=== PATIENT | female | born 1935 | race Caucasian/White ===

== ENCOUNTER 2021-12-18 11:14 | Outpatient (REF) | payer MEDICARE, SELFPAY ==
[2021-12-18 14:29] LABS: TSH reflex Free T4 1.32 uIU/mL (0.32-4.0)
[2021-12-18 14:30] LABS: Alanine Aminotransferase 19 U/L (0-31); Albumin Level 4.1 g/dL (3.5-5.0); Alkaline Phosphatase 58 U/L (39-117); Anion Gap 13 (12-20); Aspartate Amino Transferase 25 U/L (5-31); Bilirubin Total 0.6 mg/dL (0.0-1.0); Carbon Dioxide 28 mmol/L (22-29); Chloride 106 mmol/L (96-108); Cholesterol 161 mg/dL; Estimated Glomerular Filt Rate 46; Glucose Fasting 75 mg/dL (60-99); HDL Cholesterol 53 mg/dL; LDL Cholesterol Calculated 86 mg/dl; Potassium 4.5 mmol/L (3.3-5.1); Sodium 142 mmol/L (135-145); Total Protein 7.2 g/dL (6.5-8.0); Triglycerides 114 mg/dL
[2021-12-18 15:47] LABS: Blood Urea Nitrogen 23 mg/dL (9-16); Calcium 9.8 mg/dL (8.4-10.2)
== END 2021-12-18 11:15 | disposition home or self-care (01) ==
LOC: HO.WFDLDS 11:14
PROVIDERS: Visit Provider Family Medicine
DX: Z00.00 Encounter for general adult medical examination without abnormal findings (principal)
CPT/HCPCS: 36415; 80053; 80061; 84443

== ENCOUNTER 2022-03-18 14:49 | Outpatient (REF) | payer MEDICARE, SELFPAY ==
--- NOTE | 2022-03-18 16:56 | MHC.AU.ANR ---
Adult Audiological Evaluation Date of Visit: 03/18/22 Reason for Appointment: Audiological evaluation due to concern for decreased hearing. Ms. Man reports difficulties understanding speech and feels like she is not hearing clearly. She notes that her left ear sometimes has an echoing sound in it. She reports that when she was a child she had an abscess in her left ear that was removed. She notes that she recently had her ears flushed of wax. Does patient feel they have a hearing loss?: Yes If Yes, Which Ear?: Both Ears When Was Hearing Difficulty First Noticed?: 1+ year Has hearing been tested previously?: Previous Hearing Test Results: Notes that she had a hearing test a long time ago, but does not remember the results. Hearing Handicap Inventory: HHIE SCORE: 18 Based on HHIE score, patient has: Mild to moderate perceived hearing handicap Ear History: Ear Infections in Childhood: Left Ear History of Ear Wax Buildup: Both Ears Medical History: Medical History: Heart Problems, High Blood Pressure Medical History (Other): Per EMR: atrial fibrillation Allergies: NKA Medication List: Per EMR: Alprazolam, apixaban, Debrox, Digoxin, gabapentin, lisinopril, tramadol, verapamil Otoscopy: Right Ear: Unremarkable Left Ear: Unremarkable Tympanometry: Tympanometry performed due to: To assess integrity of the middle ear system Right Ear: Reduced Middle Ear Compliance (Type As) Left Ear: Reduced Middle Ear Compliance (Type As) Hearing Evaluation: Transducer(s) Used: Insert Earphones, Bone Conduction Method: Conventional Audiometry Stimuli Used: Pure Tones Right Ear: Description of Hearing: Mild sloping to moderately-severe sensorineural hearing loss from 250-8000 Hz. Left Ear: Description of Hearing: Moderate to moderately-severe sensorineural hearing loss form 250-8000 Hz. Speech Recognition Threshold (SRT): Method Used: Monitored Live Voice Stimuli Used: Spondee Words Right Ear: 45 dBHL Left Ear: 50 dBHL Word Discrimination: Method: Recorded Lists Word Lists Used: NU-6 Right Ear: 60% at 80 dBHL Left Ear: 40% at 80 dBHL Binaural: 64% at 80 dBHL Most Comfortable Level (MCL): Right Ear: 80 dBHL Left Ear: 75 dBHL QuickSIN: Comparison: Compared to the most recent evaluation: Compared to the most recent evaluation: Interpretation of Results: Recommendations: Audiological re-evaluation in one year. Trial with amplification is recommended. Discussed benefits of hearing aid use. She will think about her options and if she is ready to pursue hearing aids. Recommended she contact her health insurance plan to determine if she has any hearing aid benefits. Welcomed to return for a hearing aid consultation to further discuss options if she decides she would like to pursue hearing aids through our clinic. Diagnosis: Primary Diagnosis: H90.3 Bilateral Sensorineural Hearing Loss Services Performed: Services Performed: Comprehensive Audiological Evaluation (CPT 78419) Tympanometry (CPT 09099) Signature: Provider: Jos Myles, CCC-A
== END 2022-03-18 14:50 | disposition home or self-care (01) ==
LOC: HO.SH 14:49
PROVIDERS: Visit Provider Family Medicine
DX: Z01.118 Encounter for examination of ears and hearing with other abnormal findings (principal); H90.3 Sensorineural hearing loss, bilateral
CPT/HCPCS: 92557; 92567

== ENCOUNTER 2022-06-10 11:55 | Outpatient (REF) | payer SELFPAY ==
--- NOTE | 2022-06-11 11:12 | MHC.AU.HFU ---
Hearing Instrument Follow-Up- Binaural Date of Visit: 06/10/22 Summary: Scheduled for HAE. Patient had gone to [facility] and tried a pair of aids in office, but does not want to return there to purchase aids as too expensive and did not like working with a diagnostics sales developer. Patient interested in basic level and rechargeable model. Patient insisted on trying Demos in office. Discussed and modeled ELINOR vs. custom due to vision an manipulation concerns. Patient wants the ELINOR style as less visible. Trialed both ReSound and Oticon aids in office, but needed the gain very reduced to tolerate on both aids. Seemed to hear better in office with the Resound aids. Will need custom tips as it is difficult to place domes around the curves of canals for best sound quality and keeping aids in ears. Otoscopy shows mostly occluding cerumen bilaterally. Patient on blood thinner so needs to see a physician for removal. Recommendations: Recommendations (Other): Patient will return to Urgent Care where ears have been cleaned in past. Scheduled appointment for 06/17/22 12:15 for impressions and confirm order. Patient will likely want to set up payment plan for 2nd half of balance Diagnosis Code(s): Primary Diagnosis: H90.3 Bilateral Sensorineural Hearing Loss Signature: Provider: Yousuf Corrales, CCC-A
== END 2022-06-10 11:56 | disposition home or self-care (01) ==
LOC: HO.HAP 11:55
PROVIDERS: Visit Provider Family Medicine
DX: Z13.89 Encounter for screening for other disorder (principal)

== ENCOUNTER 2022-06-17 11:45 | Outpatient (REF) | payer SELFPAY ==
--- NOTE | 2022-06-17 13:39 | MHC.AU.MED ---
Medical Clearance for Hearing Instrumentation Date: 06/17/22 Patient Name: Goldie Man Date of : 1935 Primary Care Provider: Referring Provider: Mitchell Starr MD We have seen your patient on 06/17/22 and have determined that they are a candidate for amplification (See accompanying report). Specifically, they would benefit from: Hearing aid use in both ears There is a statute that addresses Medical Evaluation Requirements prior to fitting a patient with a hearing aid. According to [place] statute 265 CMR:6.03(1), (a) General. Except as provided in 265 CMR 6.03(1)(b), a online marketer shall not sell a hearing aid unless the prospective user has presented to the online marketer a written statement signed by a licensed physician that states that the patient's hearing loss has been medically evaluated and the patient may be considered a candidate for a hearing aid. The medical evaluation must have taken place within the preceding six months. Please note: Due to the [place] Statute referenced above, we cannot accept a signature other than that of a licensed physician. DIGESTER CAPPER and PA signatures cannot be accepted. I am in agreement with the above recommendation. There is no medical contraindication for hearing instrumentation. Physician Signature Date Physician Name (Printed)
--- NOTE | 2022-06-17 13:50 | MHC.AU.HAS ---
Hearing Aid Evaluation Date of Visit: 06/17/22 Historical Information: Description of Hearing: Bilateral Mild/moderate to moderately-severe sensorineural hearing loss Current personal amplification information, if applicable: None Summary: Due to patient's significant hearing loss and speech understanding difficulty, binaural hearing aids are recommended. After discussion and demonstrating hearing aids in office, patient wants rechargeable ELINOR style aids and communicated better while in office with the ReSound ELINOR aids. Took impressions for custom earmolds without complication Hearing Aid Prescription: Based on the individual?s shared listening needs, communication environments, dexterity, desire for connectivity, and personal preferences, the following prescription for amplification has been made: Right ear: Belt Press Operator: ReSound Model: [id number] Battery Size: Rechargeable Color: Graphite Behavioral Intervention Specialist: 2 MP Type of Mold: ReSound Canal Lock Left ear:Left ear prescription to be same as Right Hearing Aid above: Belt Press Operator: ReSound Model: [id number] Battery Size: Rechargeable Color: Graphite Behavioral Intervention Specialist: 2 MP Type of Mold: ReSound Canal Lock Plan of Care: Patient wishes to purchase hearing aids as prescribed Action Taken/Action Needed: Earmold Impressions Taken Medical Clearance to be requested from PCP/ENT Comments: HAF scheduled for 07/17/2022 Primary Diagnosis: H90.3 Bilateral Sensorineural Hearing Loss Signature:Provider: Yousuf Corrales, CCC-A
== END 2022-06-17 11:46 | disposition home or self-care (01) ==
LOC: HO.HAP 11:45
PROVIDERS: Visit Provider Family Medicine
DX: Z46.1 Encounter for fitting and adjustment of hearing aid (principal); H90.3 Sensorineural hearing loss, bilateral
CPT/HCPCS: 92590; 92591

== ENCOUNTER 2022-07-17 10:53 | Outpatient (REF) | payer SELFPAY | END 2022-07-17 10:54 | disposition home or self-care (01) | LOC: HO.HAP 10:53 | PROVIDERS: Visit Provider Family Medicine | DX: Z13.89 Encounter for screening for other disorder (principal) ==

== ENCOUNTER 2022-09-19 12:59 | Outpatient (REF) | payer SELFPAY | END 2022-09-19 13:00 | disposition home or self-care (01) | LOC: HO.HAP 12:59 | PROVIDERS: Visit Provider Family Medicine | DX: Z46.1 Encounter for fitting and adjustment of hearing aid (principal); H90.3 Sensorineural hearing loss, bilateral | CPT/HCPCS: 92700; V5299 ==

== ENCOUNTER 2022-10-17 12:18 | Outpatient (REF) | payer SELFPAY | END 2022-10-17 12:19 | disposition home or self-care (01) | LOC: HO.HAP 12:18 | PROVIDERS: Visit Provider Family Medicine | DX: Z13.89 Encounter for screening for other disorder (principal) ==

== ENCOUNTER 2023-03-12 10:53 | Outpatient (REF) | payer MEDICARE, SELFPAY ==
[2023-03-12 13:52] LABS: Appearance Urine Clear; Color Urine Yellow; Glucose Urine UA Negative (Negative); Leukocyte Esterase Urine Small (1+) (Negative); Nitrite Urine Negative (Negative); Specific Gravity - Urine 1.015 (1.005-1.025); UMIC TRIGGER UA YES; Urine Blood Negative (Negative); Urine Ketones Negative (Negative); Urine Protein Negative (Neg-Trace)
[2023-03-12 14:19] LABS: Bacteria Urine Trace (None Seen); Hyaline Casts Urine 0-2 /LPF (0-2); RBC Urine 0-2 /HPF (0-2); Squamous Epithelial Cell Urine 0-2 /HPF (0-2); WBC Urine 0-5 /HPF (0-5)
[2023-03-12 15:30] LABS: Microalbumin Urine < 5.0 mg/L
== END 2023-03-12 10:54 | disposition home or self-care (01) ==
LOC: HO.WFDLNP 10:53
PROVIDERS: Visit Provider Family Medicine
DX: I10 Essential (primary) hypertension (principal)
CPT/HCPCS: 81001; 82043

== ENCOUNTER 2023-03-16 10:16 | Outpatient (REF) | payer MEDICARE, SELFPAY ==
[2023-03-16 11:47] LABS: Alanine Aminotransferase 18 U/L (0-31); Albumin Level 3.8 g/dL (3.5-5.0); Alkaline Phosphatase 54 U/L (39-117); Anion Gap 11 (12-20); Aspartate Amino Transferase 24 U/L (5-31); Bilirubin Total 0.6 mg/dL (0.0-1.0); Blood Urea Nitrogen 20 mg/dL (9-16); Calcium 9.6 mg/dL (8.4-10.2); Carbon Dioxide 30 mmol/L (22-29); Chloride 103 mmol/L (96-108); Cholesterol 162 mg/dL; Estimated Glomerular Filt Rate 42; Glucose Fasting 81 mg/dL (60-99); HDL Cholesterol 44 mg/dL; LDL Cholesterol Calculated 98 mg/dl; Potassium 4.8 mmol/L (3.3-5.1); Sodium 139 mmol/L (135-145); Total Protein 6.9 g/dL (6.5-8.0); Triglycerides 103 mg/dL
== END 2023-03-16 10:17 | disposition home or self-care (01) ==
LOC: HO.WFDLDS 10:16
PROVIDERS: Visit Provider Family Medicine
DX: Z00.00 Encounter for general adult medical examination without abnormal findings (principal)
CPT/HCPCS: 36415; 80053; 80061; 84443

== ENCOUNTER 2023-03-17 16:00 | Outpatient (REF) | payer MEDICARE, SELFPAY ==
[2023-03-18 14:18] LABS: Appearance Urine Cloudy; Color Urine Yellow; Glucose Urine UA Negative (Negative); Leukocyte Esterase Urine Negative (Negative); Nitrite Urine Negative (Negative); PH 6.5 (5.0-9.0); Urine Blood Negative (Negative); Urine Ketones Negative (Negative); Urine Protein Negative (Neg-Trace)
== END 2023-03-17 16:01 | disposition home or self-care (01) ==
LOC: HO.WFDLNP 16:00
PROVIDERS: Visit Provider Family Medicine
DX: I10 Essential (primary) hypertension (principal)
CPT/HCPCS: 81003

== ENCOUNTER 2023-05-26 14:14 | Outpatient (AMB) | payer MEDICARE, SELFPAY ==
--- NOTE | 2023-05-26 14:18 | A.OFFPC_ITS ---
Vital Signs 05/26/23 14:23 Height 5 ft 4 in Weight 126 lb BMI 21.6 BP 124/70 Blood Pressure Location Lt brachial Pulse 65 Pulse Oximetry (%) 97 Oxygen Delivery Method Room Air Intake Visit Reasons: f/u hypertension and chronic conditions Intake Note: Patient is here for hypertension and chronic conditions. Allergies No Known Allergies Allergy (Verified 05/26/23 14:24) Tobacco use date assessed: 07/25/22 Fall risk assessment: No Falls in past year Dental Screening Dental Screen Date: 05/26/23 Did you have a dental visit in the last 12 months?: No Did you have a dental problem in the last 6 months where you did not have access to dental care?: No Was dental information given to patient?: No HPI f/u hypertension and chronic conditions HPI Details 88 y/o female presents to f/u hypertension and chronic conditions. Blood pressure today is 124/70. Has lower extremity weakness for which she has undergone physical therapy by [facility]. This has been discontinued. Still in wheelchair and gets around at home with some walking. Has a PARKING METER MECHANIC who helps her at home [facility] Social History Housing: House Patient Tobacco Use Status: Former Tobacco user (23 yars ago ) Tobacco use type: Cigarette e-Cigarette/Vaping Use: Never Used Second Hand Smoke Exposure: No service: No Current occupational status: retired Current occupational exposures/hazards: No Cognitive needs: Yes Hearing needs: Yes Vision needs: Yes Questionnaire Thrive Questionnaire Date Thrive assessed: 01/13/22 MAGAN-7 AMB Questionnaire MAGAN-7 Date MAGAN - 7 assessed: 09/26/21 Source: Developed by Drs. Maximino Stafford, Lynn Urrutia, Ramy Baca and colleagues, with an educational melba from [employer]. Review of Systems Const Denies chills, Denies fatigue, Denies fever(s), Denies headache(s) and Denies weakness ENT Denies dizziness and Denies headache(s) Card Denies dyspnea Resp Denies cough, Denies dyspnea, Denies wheezing and Denies other (shortness of breath) Musc Denies numbness and Denies tingling Neuro Denies dizziness, Denies headache(s), Denies numbness, Denies tingling and Denies weakness Psych Denies anxiety and Denies depression Endo Denies fatigue Aller/Immun Denies wheezing Physical exam (Primary Care) Vital Signs: Last Vital Signs Pulse 65 05/26/23 14:23 BP 124/70 05/26/23 14:23 Pulse Ox 97 05/26/23 14:23 Oxygen Delivery Method Room Air 05/26/23 14:23 BMI result Body Mass Index 21.6 Tobacco/Smoking Status: Tobacco use Status Tobacco use date assessed 07/25/22 05/26/23 14:19 Patient Tobacco Use Status Former Tobacco user (23 yars 05/26/23 14:19 ago ) Tobacco use type Cigarette 05/26/23 14:19 e-Cigarette/Vaping Use Never Used 05/26/23 14:19 Thrive Assessment: Date of Thrive Assessment Date Thrive assessed 01/13/22 05/26/23 14:19 Const General: well developed; No acute distress Nutritional Appearance: well nourished Orientation/consciousness: patient oriented x3 HENMT Head: Yes normocephalic and Yes atraumatic Eyes General: appearance normal, both eyes and all related structures Pupils: Equal, round and reactive pupils present EOM: EOMs intact bilaterally Resp Effort & Inspection: normal respiratory effort Neuro General: patient oriented x3 and gait normal Cranial nerves: Yes CN's II-XII intact bilaterally and Yes Equal, round and reactive pupils present Gait exam (Neuro): gait abnormal and Assisted gait required Gait assisted method: wheelchair bound Motor exam (neuro): strength not 5/5 throughout (LE weakness, L worse than right) Psych Affect: normal affect Assessment and Plan Assessment & Plan (1) Essential hypertension: Code(s): I10 - Essential (primary) hypertension Plan: Blood pressure is controlled. Goal is less than 140/90 Continue current medication regimen (2) Lower extremity weakness: Code(s): R29.898 - Other symptoms and signs involving the musculoskeletal system Plan: Patient has a history left-sided sciatica as well as bilateral knee pain and secondary lower extremity weakness She had undergone physical therapy with [facility] I encouraged her to continue her exercises Still in a wheelchair but does get up to get around at home and I encouraged this with assistance (3) Left sided sciatica: Code(s): M54.32 - Sciatica, left side Plan: As above Orders: Orders Comprehensive Met. Panel Today I10 - Essential (primary) hypertension Medications: Refilled lisinopril-hydrochlorothiazide 20-12.5 mg 1 tab PO DAILY 90 tabs 4RF 90 days Coding Level of Care Code Est Pt Level 4 (00726) Diagnoses Essential hypertension I10 Lower extremity weakness R29.898 Left sided sciatica M54.32
[2023-05-26 14:23] VITALS: BP 124/70; PULSE 65; O2SAT 97; BMI 21.6
== END 2023-05-26 14:55 | disposition home or self-care (01) ==
PROVIDERS: Visit Provider Family Medicine
DX: I10 Essential (primary) hypertension (principal); R29.898 Other symptoms and signs involving the musculoskeletal system; M54.32 Sciatica, left side
CPT/HCPCS: 99214

== ENCOUNTER 2023-07-21 14:53 | Outpatient (REF) | payer MEDICARE, SELFPAY ==
--- NOTE | ~2023-07-21 | CT_ITS ---
EXAMINATION: CT head/brain wo IV con CLINICAL INFORMATION: Reason for Exam R41.82 - Altered mental status, unspecified COMPARISON: None. TECHNIQUE: Contiguous axial imaging was performed from the skull base to vertex without intravenous contrast. Sagittal and coronal reformatted images were obtained. This CT examination was performed using dose optimization techniques as appropriate, variously including the following: * Automated exposure control * Adjustment of mA and/or kV according to patient size (this includes techniques or standardized protocols for targeted exams where dose is matched to indication/reason for exam; i.e. extremities or head) Use of iterative reconstruction technique DLP: 714 mGy-cm FINDINGS: There is a partially mineralized 2.1 cm extra-axial mass within the medial aspect of the right middle cranial fossa broadly abutting the right anterior clinoid process and lesser wing of the sphenoid bone, lateral dural reflection of the right cavernous sinus and superior aspect of the right Meckel's cave with mass effect along the mesial right temporal lobe but no vasogenic edema. The mass contacts the right carotid terminus and right M1 MCA. 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 Mild to moderate generalized parenchymal volume loss. Patchy periventricular and deep white matter hypoattenuation is nonspecific but likely reflects sequelae of mild chronic microangiopathy. No territorial loss of lambert-white differentiation. Cranial calcific atherosclerosis. No acute intracranial hemorrhage or extra-axial fluid collection. The orbits are grossly normal. Mild mucosal disease within the bilateral maxillary sinus alveolar recesses. No mastoid effusion. Asymmetric advanced right TMJ osteoarthrosis. Osseous structures are intact. Incompletely advanced hypertrophic degenerative changes across the anterior atlantodental interval with retrodental ligamentous thickening/panus encroaching upon the ventral cervicomedullary junction. CT/CT head/brain wo IV con IMPRESSION: 1. Partially mineralized 2.1 cm extra-axial right paraclinoid mass within the right middle cranial fossa causing mass effect along adjacent structures including the mesial right temporal lobe without vasogenic edema, most suggestive of a paraclinoid meningioma. Further characterization with contrast-enhanced MRI is advised. Findings to be called to the ordering clinician by a [facility] Physician Donor Floor Technician. 2. 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 3. Asymmetric advanced right TMJ osteoarthrosis. 4. Incompletely advanced hypertrophic degenerative changes across the anterior atlantodental interval with retrodental ligamentous thickening/panus encroaching upon the ventral cervicomedullary junction.
== END 2023-07-21 14:54 | disposition home or self-care (01) ==
LOC: HO.CT 14:53
PROVIDERS: PCP Family Medicine; Visit Provider Family Medicine
DX: R41.82 Altered mental status, unspecified (principal)
CPT/HCPCS: 70450

== ENCOUNTER 2023-08-12 10:50 | Outpatient (REF) | payer MEDICARE, SELFPAY ==
[2023-08-12 14:31] LABS: Alanine Aminotransferase 14 U/L (0-31); Albumin Level 3.8 g/dL (3.5-5.0); Alkaline Phosphatase 46 U/L (39-117); Anion Gap 16 (12-20); Aspartate Amino Transferase 23 U/L (5-31); Bilirubin Total 0.3 mg/dL (0.0-1.0); Blood Urea Nitrogen 25 mg/dL (9-16); Calcium 9.7 mg/dL (8.4-10.2); Carbon Dioxide 23 mmol/L (22-29); Chloride 106 mmol/L (96-108); Estimated Glomerular Filt Rate 46; Glucose Random 93 mg/dL (60-115); Potassium 4.4 mmol/L (3.3-5.1); Sodium 141 mmol/L (135-145); Total Protein 6.9 g/dL (6.5-8.0)
== END 2023-08-12 10:51 | disposition home or self-care (01) ==
LOC: HO.WFDLDS 10:50
PROVIDERS: Visit Provider Family Medicine
DX: I10 Essential (primary) hypertension (principal)
CPT/HCPCS: 36415; 80053

== ENCOUNTER 2023-08-17 | Outpatient (REF) | payer MEDICARE, SELFPAY ==
[2023-08-17 13:41] LABS: Appearance Urine Clear; Color Urine Yellow; Glucose Urine UA Negative (Negative); Leukocyte Esterase Urine Negative (Negative); Nitrite Urine Negative (Negative); Urine Blood Negative (Negative); Urine Ketones Negative (Negative); Urine Protein Negative (Neg-Trace)
== END 2023-08-17 00:01 | disposition home or self-care (01) ==
LOC: HO.LNP
PROVIDERS: Visit Provider Family Medicine
DX: Z00.00 Encounter for general adult medical examination without abnormal findings (principal)
CPT/HCPCS: 81003

== ENCOUNTER 2023-08-18 11:07 | Outpatient (AMB) | payer MEDICARE, SELFPAY ==
--- NOTE | 2023-08-18 11:24 | MHC.PC.OV ---
Vital Signs 08/18/23 11:25 Height 5 ft 4 in Weight 126 lb 4 oz BMI 21.7 BP 124/66 Blood Pressure Location Lt brachial Position Sitting Respiration 13 Pulse 63 Pulse Source Pulse Oximeter Temp 97 F Temp Source Temporal Artery Scan Pulse Oximetry (%) 99 Oxygen Delivery Method Room Air Intake Visit Reasons: f/u hypertension and chronic conditions Bone Puller Required: No Accompanied by: caregiver Allergies No Known Allergies Allergy (Verified 08/18/23 11:32) Medication List - Last Reconciled 08/18/23 by Mitchell Starr MD alprazolam 0.5 mg PO TID PRN 28 days apixaban (Eliquis) 2.5 mg PO BID 30 days carbamide peroxide 6.5% (Debrox) 5 drps otic (ears) DAILY 4 days citalopram 10 mg PO DAILY 90 days digoxin 125 mcg PO DAILY gabapentin 300 mg PO TID 90 days lisinopril-hydrochlorothiazide 20-12.5 mg 1 tab PO DAILY 90 days miscellaneous medical supply Wheelchair. Daily As directed. 999 days naloxone 4 mg/actuation (Narcan) 4 mg intranasal Q2M PRN tramadol 50 mg PO BID 1 month verapamil ER 240 mg PO DAILY 90 days Tobacco use date assessed: 08/18/23 Fall risk assessment: No Falls in past year Last assessed Fall Risk: 08/18/23 Dental Screening Dental Screen Date: 08/18/23 Did you have a dental visit in the last 12 months?: No Did you have a dental problem in the last 6 months where you did not have access to dental care?: No Was dental information given to patient?: Yes HPI f/u hypertension and chronic conditions HPI Details 88 y/o female presents to f/u hypertension and chronic conditions. Recent abnormal head CT - results suggestive of a paraclinoid meningioma. Pt reports peripheral vision changes. Had made a referral to Neurology and they report she has an appt. with them in September. They also report ongoing mental status alterations. [facility] Medical History (Updated 08/18/23 @ 12:15 by Lefty Fitch) No pertinent past medical history Surgical History No pertinent past surgical history Social History Housing: House Patient Tobacco Use Status: Former Tobacco user (23 yars ago ) Tobacco use type: Cigarette e-Cigarette/Vaping Use: Never Used Second Hand Smoke Exposure: No service: No Current occupational status: retired Current occupational exposures/hazards: No Cognitive needs: Yes Hearing needs: Yes Vision needs: Yes Questionnaire Thrive Questionnaire Date Thrive assessed: 01/13/22 MAGAN-7 AMB Questionnaire MAGAN-7 Date MAGAN - 7 assessed: 09/26/21 Source: Developed by Drs. Maximino Stafford, Lynn Urrutia, Ramy Baca and colleagues, with an educational melba from [employer]. Physical exam (Primary Care) Vital Signs: Last Vital Signs Temp 97 F 08/18/23 11:25 Pulse 63 08/18/23 11:25 Resp 13 08/18/23 11:25 BP 124/66 08/18/23 11:25 Pulse Ox 99 08/18/23 11:25 Oxygen Delivery Method Room Air 08/18/23 11:25 BMI result Body Mass Index 21.7 Tobacco/Smoking Status: Tobacco use Status Tobacco use date assessed 08/18/23 08/18/23 11:36 Patient Tobacco Use Status Former Tobacco user (23 yars 08/18/23 11:24 ago ) Tobacco use type Cigarette 08/18/23 11:24 e-Cigarette/Vaping Use Never Used 08/18/23 11:24 Thrive Assessment: Date of Thrive Assessment Date Thrive assessed 01/13/22 08/18/23 11:24 Assessment and Plan Assessment & Plan (1) Essential hypertension: Code(s): I10 - Essential (primary) hypertension Plan: Blood?pressure?is?well?controlled?goal?is?less?than?130/80 Continue?current?medication?regimen (2) Mental status alteration: Code(s): R41.82 - Altered mental status, unspecified Plan: As?above (3) Vision changes: Code(s): H53.9 - Unspecified visual disturbance Plan: As?above (4) Immunization counseling: Code(s): Z71.85 - Encounter for immunization safety counseling Plan: Patient?will?get?high-dose?flu?shot?at?her?pharmacy Also?advised?COVID?booster (5) Brain mass: Code(s): G93.89 - Other specified disorders of brain Plan: Paraclinoid?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 There?has?been?interval?change?in?size. Patient?notes?changes?in?her?vision?and?family?member?notes?significant?changes?in?mental?status She?has?an?appointment?with?Neurology?in?September Advised?if?any?significant?worsening?she?should?go?to?the?ED?but?otherwise?follow-up?with?Neurology. Also?advised?she?follow-up?with?her?greeting card writer Coding Level of Care Code Est Pt Level 4 (95938) Diagnoses Essential hypertension I10 Mental status alteration R41.82 Vision changes H53.9 Immunization counseling Z71.85 Brain mass G93.89
[2023-08-18 11:25] VITALS: BP 124/66; PULSE 63; RESP 13; TEMP 36.1; O2SAT 99; BMI 21.7
== END 2023-08-18 12:25 | disposition home or self-care (01) ==
PROVIDERS: PCP Family Medicine; Visit Provider Family Medicine
DX: I10 Essential (primary) hypertension (principal); R41.82 Altered mental status, unspecified; H53.9 Unspecified visual disturbance; Z71.85 Encounter for immunization safety counseling; G93.89 Other specified disorders of brain
CPT/HCPCS: 99214

== ENCOUNTER 2023-09-22 13:28 | Outpatient (REF) | payer MEDICARE, SELFPAY ==
[2023-09-22 14:56] LABS: Vitamin B12 545 pg/mL (200-900)
[2023-09-24 05:33] LABS: Lyme Abs Screen <0.90 index
== END 2023-09-22 13:29 | disposition home or self-care (01) ==
LOC: HO.LAB 13:28
PROVIDERS: Visit Provider Psychiatry & Neurology Neurology
DX: G30.9 Alzheimer's disease, unspecified (principal)
CPT/HCPCS: 36415; 82607; 86617; 86618

== ENCOUNTER 2023-11-17 13:34 | Outpatient (AMB) | payer MEDICARE, SELFPAY ==
--- NOTE | 2023-11-17 13:49 | A.OFFPC_ITS ---
Vital Signs 11/17/23 13:50 Height 5 ft 4 in Weight 130 lb 2 oz BMI 22.3 BP 140/80 H Blood Pressure Location Lt brachial Position Sitting Respiration 14 Pulse 76 Pulse Source Pulse Oximeter Pulse Oximetry (%) 96 Oxygen Delivery Method Room Air Intake Visit Reasons: f/u chronic conditions Intake Note: Patient is here to follow up on her chronic conditions. Patient reports she has had great difficulty getting her medications refilled and getting ahold of the office. Patient reports she was seen by neurology (scanned into patients chart) and the doctor had mentioned patient should not be home alone anymore and prescribed her quetiapine. Patient reports she will not take this medication due to hearing that 3 women from it. Due to the advice from the other provider, patients granddaughter is wondering if there is any program or help the patient can receive. 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 Mental status change and had seen Dr. Edmond [facility] 09/22/23. 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 Started her on quetiapine for alzheimer disease and get a scan to review size of meningioma. Patient reports she will not take this medication due to hearing that 3 women from it. She has not tried it at all. She has a home health aide and may need additional services. Blood pressure today 140/80. She is on verapamil 240mg, lisinopril-HCTZ 20- 12.5mg daily. She continues taking her medication daily. She has a blood pressure kit at home. They have not checked it recently. [facility] Medical History (Updated 08/18/23 @ 12:15 by Lefty Fitch) No pertinent past medical history Surgical History No pertinent past surgical history Social History Housing: House Patient Tobacco Use Status: Former Tobacco user (23 yars ago ) Tobacco use type: Cigarette e-Cigarette/Vaping Use: Never Used Second Hand Smoke Exposure: No service: No Current occupational status: retired Current occupational exposures/hazards: No Cognitive needs: Yes Hearing needs: Yes Vision needs: Yes Questionnaire Thrive Questionnaire Date Thrive assessed: 01/13/22 MAGAN-7 AMB Questionnaire MAGAN-7 Date MAGAN - 7 assessed: 09/26/21 Source: Developed by Drs. Maximino Stafford, Lynn Urrutia, Ramy Baca and colleagues, with an educational melba from [employer]. Review of Systems Const Denies chills, Denies fatigue, Denies fever(s), Denies headache(s) and Denies weakness ENT Denies dizziness and Denies headache(s) Card Denies dyspnea Resp Denies cough, Denies dyspnea, Denies wheezing and Denies other (shortness of lorenzo ath) Musc Denies numbness and Denies tingling Neuro Denies dizziness, Denies headache(s), Denies numbness, Denies tingling and Denies weakness Psych Denies anxiety and Denies depression Endo Denies fatigue Aller/Immun Denies wheezing Physical exam (Primary Care) Vital Signs: Last Vital Signs Pulse 76 11/17/23 13:50 Resp 14 11/17/23 13:50 BP 140/80 H 11/17/23 13:50 Pulse Ox 96 11/17/23 13:50 Oxygen Delivery Method Room Air 11/17/23 13:50 BMI result Body Mass Index 22.3 Tobacco/Smoking Status: Tobacco use Status Tobacco use date assessed 08/18/23 11/17/23 14:01 Patient Tobacco Use Status Former Tobacco user (23 yars 11/17/23 14:01 ago ) Tobacco use type Cigarette 11/17/23 14:01 e-Cigarette/Vaping Use Never Used 11/17/23 14:01 Thrive Assessment: Date of Thrive Assessment Date Thrive assessed 01/13/22 11/17/23 14:01 Const General: well developed; No acute distress Nutritional Appearance: well nourished Orientation/consciousness: patient oriented x3 HENMT Head: Yes normocephalic and Yes atraumatic Eyes General: appearance normal, both eyes and all related structures Pupils: Equal, round and reactive pupils present EOM: EOMs intact bilaterally Resp Effort & Inspection: normal respiratory effort Neuro General: patient oriented x3 and gait normal Cranial nerves: Yes Equal, round and reactive pupils present Psych Affect: normal affect Assessment and Plan Assessment & Plan (1) Essential hypertension: Code(s): I10 - Essential (primary) hypertension Plan: Blood?pressure?is?a?little?elevated?today?but?previously?has?been?fairly?well?co ntrolled. Continue?current?medication Her?home?health?aide?will?check?her?blood?pressures?at?home?and?let?me?know?if?S BP?greater?than?140?more?often?than?not.??Would?adjust?patient's?meds. (2) Mental status alteration: Code(s): R41.82 - Altered mental status, unspecified Plan: Ongoing?mental?status?changes She?has?a?home?health?aide?and?may?need?additional?services. I?have?made?a?referral?to?the?nurse?navigator?to?evaluate?but?patient?is?hard?of ?hearing?and?they?have?not?been?contact?is?successfully. Requesting?nurse?navigator?contact?patient's?grand daughter Joyce. Joyce: [phone] I?have?also?referred?patient?to?neuropsych.??Will?ask?office?staff?to?check?on?t he?status?of?this?referral. (3) Meningioma: Code(s): D32.9 - Benign neoplasm of meninges, unspecified Plan: Follow-up?with?Neurology Medications: Refilled citalopram 10 mg PO DAILY 90 days 90 tabs 3RF Coding Level of Care Code Est Pt Level 4 (76038) Diagnoses Essential hypertension I10 Mental status alteration R41.82 Meningioma D32.9
[2023-11-17 13:50] VITALS: BP 140/80; PULSE 76; RESP 14; O2SAT 96; BMI 22.3
== END 2023-11-17 15:00 | disposition home or self-care (01) ==
PROVIDERS: PCP Family Medicine; Visit Provider Family Medicine
DX: I10 Essential (primary) hypertension (principal); R41.82 Altered mental status, unspecified; D32.9 Benign neoplasm of meninges, unspecified
CPT/HCPCS: 99214